=== PATIENT | male | born 1985 | race Caucasian/White ===

== ENCOUNTER → 2024-09-14 18:02 | Outpatient (BNVA) | payer BC, SELFPAY | PROVIDERS: PCP Family Medicine | DX: J02.9 Acute pharyngitis, unspecified (principal) | CPT/HCPCS: 87071; 87880 ==

== ENCOUNTER → 2025-03-18 07:51 | Outpatient (BNVA) | payer BC, SELFPAY | PROVIDERS: PCP Family Medicine; Visit Provider Physician Assistant | DX: M23.302 Other meniscus derangements, unspecified lateral meniscus, unspecified knee (principal); S89.92XA Unspecified injury of left lower leg, initial encounter; X58.XXXA Exposure to other specified factors, initial encounter | CPT/HCPCS: 73560; 73565 ==

== ENCOUNTER 2025-04-08 12:49 | Outpatient (CLI) | payer BC, SELFPAY ==
--- NOTE | 2025-04-08 13:00 | MR_ITS ---
WS: [id number] MRI LEFT KNEE HISTORY: derangement of left knee COMPARISON: 03/18/2025 Anterior cruciate ligament: Intact. Posterior cruciate ligament: Intact. Medial collateral ligament: Intact. Posterior lateral corner structures: Intact. Medial menisci: Intermediate signal in the posterior horn does not definitely extend to an articular surface. Lateral meniscus: Intact. Normal signal, size and shape. Extensor mechanism: Distal quadriceps tendon and patellar tendons are intact. Fluid and soft tissue: No joint effusion. No Cortez's cyst. Osseous and articular structures: Patellofemoral compartment: Normal position of the patella. Slight narrowing of the lateral patellofemoral articulation. No full-thickness cartilage defect or marrow edema. Medial compartment: No significant joint space narrowing. Cartilage is well- preserved. No marrow edema. Lateral compartment: No significant joint space narrowing. Cartilage is well- preserved. No marrow edema. MR/MR knee LT wo con* [id number] IMPRESSION: 1. No ACL tear. 2. Intermediate signal in the posterior horn medial meniscus. No meniscal tear . 3. Mild narrowing of the lateral patellofemoral articulation. 4. No marrow edema or fracture.
== END 2025-04-08 12:50 | disposition home or self-care (01) ==
LOC: RAD 12:49
PROVIDERS: PCP Family Medicine; Visit Provider Physician Assistant
DX: M25.562 Pain in left knee (principal); M23.322 Other meniscus derangements, posterior horn of medial meniscus, left knee; M22.2X2 Patellofemoral disorders, left knee
CPT/HCPCS: 73721